=== PATIENT | male | born 1970 | race Hispanic/Latino ===

== ENCOUNTER 2017-01-28 22:04 | Observation (INO) | payer OTHER ==
[2017-01-28 22:05] VITALS: BMI 24.7
[2017-01-28] MEDS ORDERED: Sodium Chloride 0.9% 1,000 ML IV STA (22:31)
--- NOTE | 2017-01-28 22:36 | ED PDOC ---
HPI: Abdomen Time Seen by Provider: 01/28/17 22:14 Chief Complaint (Nursing): Abnormal Skin Integrity Chief Complaint (Provider): abd pain History Per: Patient History/Exam Limitations: no limitations Onset/Duration Of Symptoms: Days (2) Current Symptoms Are (Timing): Still Present Location Of Pain/Discomfort: RUQ Quality Of Discomfort: Sharp, "Pain" Associated Symptoms: denies: Fever, Chills, Nausea, Vomiting Additional History Per: Patient Additional Complaint(s): 47 y/o male brought in by EMS for eval of right upper abdominal pain x 2 days. Denies fever, nausea/vomiting, chest pain, shortness of breath, palpitations, changes in bowel movements, dysuria, hematuria. Past Medical History Reviewed: Historical Data, Nursing Documentation, Vital Signs Vital Signs: Last Vital Signs Temp 98.9 F 01/28/17 22:09 Pulse 106 H 01/28/17 22:09 Resp 20 01/28/17 22:09 BP 125/66 01/28/17 22:09 Pulse Ox 98 01/29/17 05:13 - Medical History PMH: No Chronic Diseases - Surgical History Surgical History: No Surg Hx - Family History Family History: States: Unknown Family Hx - Immunization History Hx Tetanus Toxoid Vaccination: No Hx Influenza Vaccination: No Hx Pneumococcal Vaccination: No - Home Medications Home Medications: Ambulatory Orders Medication Instructions Recorded Amoxicillin/Clavulanate [Augmentin 1 tab PO BID #14 tab 04/29/16 875 MG-125 MG] chlordiazePOXIDE [Chlordiazepoxide 10 mg PO Q8H #9 cap 04/29/16 HCl] Naproxen [Naprosyn] 500 mg PO Q12 PRN #20 tablet 01/29/17 - Allergies Allergies/Adverse Reactions: Allergies Allergy/AdvReac Type Severity Reaction Status Date / Time No Known Allergies Allergy Verified 05/04/16 02:23 Review of Systems ROS Statement: Except As Marked, All Systems Reviewed And Found Negative Gastrointestinal: Positive for: Abdominal Pain Physical Exam - Reviewed Nursing Documentation Reviewed: Yes Vital Signs Reviewed: Yes - Physical Exam Appears: Positive for: Well, Non-toxic, No Acute Distress Head Exam: Positive for: ATRAUMATIC, NORMAL INSPECTION, NORMOCEPHALIC Skin: Positive for: Rash (urticarial rash noted vertically to bilateral flank; no vesicles, drainage noted) Eye Exam: Positive for: Normal appearance ENT: Positive for: Normal ENT Inspection Cardiovascular/Chest: Positive for: Regular Rate, Rhythm Respiratory: Positive for: Normal Breath Sounds Gastrointestinal/Abdominal: Positive for: Bowel Sounds, Soft, Tenderness (ruq) Back: Positive for: Normal Inspection Extremity: Positive for: Normal ROM Neurologic/Psych: Positive for: Alert, Oriented, Other (+AOB) - Laboratory Results Result Diagrams: 01/28/17 22:40 01/28/17 22:40 - ECG O2 Sat by Pulse Oximetry: 98 - Progress ED Course And Treament: labs, abdomen u/s EXAM: US Abdomen Limited, Right Upper Quadrant CLINICAL HISTORY: 47 years old, male; Pain; Abdominal pain; Epigastric; Additional info: Ruq pain TECHNIQUE: Real-time ultrasound of the right upper quadrant with image documentation. COMPARISON: No relevant prior studies available. FINDINGS: Limitations: Patient compliance as per technologist. Liver: Heterogeneous, nonspecific. No discrete mass. No intrahepatic ductal dilatation. Gallbladder: Gallstone. No wall thickening. No pericholecystic fluid. Positive Yao's sign. Common bile duct: No dilatation. No stones. Pancreas: Obscured by overlying bowel gas. Right kidney: Normal echogenicity. Small cyst. No hydronephrosis. IMPRESSION: 1. Cholelithiasis with positive Yao's sign. Clinical correlation is needed. 2. Incidental/non-acute findings are described above ED OBSERVATION Discharge: Yes Date of observation admission: 01/28/17 Time of observation admission: 23:49 - Observation admission statement Patient is being placed in observation because:: abdominal pain, acute alcohol intoxication - Goals of Observation Goals of observation are:: observe for clinical sobriety, re-evaluate pain - Progress Note Progress Note: 01/28/17 23:49 Patient sleeping 01/29/17 1:30 Patient sleeping 3:00 Patient sleeping 4:30 Patient sleeping 01/29/17 05:14 Patient awake, alert, oriented x 3. Ambulating steady gait. States pain has improved. Patient educated on findings, discharged with rx Naproxen. Advised follow up [facility]. Return to ED for worsening/concerning symptoms. Disposition - Clinical Impression Clinical Impression: Cholelithiasis, Alcohol abuse - Patient ED Disposition Is Patient to be Admitted: No Counseled Patient/Family Regarding: Studies Performed, Diagnosis, Need For Followup, Rx Given - Disposition Disposition: Routine/Home Disposition Time: 05:13 Condition: STABLE
[2017-01-28 22:54] LABS: BASO % 0.9 % (0.0-2.0); EOS # 0.3 K/uL (0.0-0.7); EOS % 6.5 % (0.0-4.0); HEMOGLOBIN 14.2 g/dL (12.0-18.0); LYMPH # 1.4 K/uL (1.0-4.3); LYMPH % 27.4 % (20.0-40.0); MEAN CELL VOLUME 95.8 fl (80.0-94.0); MEAN CORPUSCULAR HEMOGLOBIN 31.9 pg (27.0-31.0); MEAN CORPUSCULAR HGB CONC 33.3 g/dL (33.0-37.0); MEAN PLATELET VOLUME 8.1 fl (7.2-11.7); MONO # 0.7 K/uL (0.0-0.8); MONO % 13.2 % (0.0-10.0); NEUT # 2.7 K/uL (1.8-7.0); NRBC % 0.1 % (0.0-0.0); RBC 4.46 Mil/uL (4.40-5.90); RED CELL DISTRIBUTION WIDTH 16.7 % (11.5-14.5); WHITE BLOOD COUNT 5.1 K/uL (4.8-10.8)
[2017-01-28 23:01] LABS: ALB/GLOB RATIO 1.3 (1.0-2.1); ALBUMIN 4.4 g/dL (3.5-5.0); ALT/SGPT 107 U/L (21-72); AST/SGOT 128 U/L (17-59); BLOOD UREA NITROGEN 11 mg/dl (9-20); CALCIUM 8.6 mg/dL (8.4-10.2); GFR AFRICAN-AMERICAN > 60; GFR NON-AFRICAN AMERICAN > 60; LIPASE 199 U/L (23-300)
[2017-01-29 05:35] VITALS: BP 141/94; PULSE 88; RESP 15; TEMP 98; O2SAT 99
--- NOTE | 2017-01-29 07:50 | US ---
HISTORY: ruq pain COMPARISON: None. TECHNIQUE: Sonographic evaluation of the right upper quadrant of the abdomen. FINDINGS: LIVER: Measures 15.2 cm in length. Hepatopedal blood flow. Fatty infiltration manifest ultrasonographically as increased echogenicity of the liver parenchyma. No mass. No intrahepatic bile duct dilatation. GALLBLADDER: Cholelithiasis. Negative study for gallbladder wall thickening, pericholecystic fluid, sonographic Yao's sign. COMMON BILE DUCT: Measures 4.4 mm. No stones. No dilatation. PANCREAS: Unremarkable as visualized. No mass. No ductal dilatation. RIGHT KIDNEY: Measures 5.3 x 11.6 cm in length. Normal echogenicity. No calculus, mass, or hydronephrosis.Incidental finding(s): Simple cyst 1 cm lower pole AORTA: No aneurysmal dilatation. IVC: Unremarkable. OTHER FINDINGS: None . IMPRESSION: Cholelithiasis. No sonographic evidence of acute cholecystitis.
== END 2017-01-29 05:16 | disposition home or self-care (01) ==
LOC: H.ER 22:04 → H.EROBSV 23:48
PROVIDERS: ADMIT Emergency Medicine; ATTEND Emergency Medicine
DX: K80.20 Calculus of gallbladder without cholecystitis without obstruction (principal); F10.129 Alcohol abuse with intoxication, unspecified; Y90.8 Blood alcohol level of 240 mg/100 ml or more

== ENCOUNTER 2017-03-07 10:19 | Observation (INO) | payer OTHER ==
[2017-03-07 10:22] VITALS: BMI 24.1
[2017-03-07 10:23] VITALS: BP 117/78; PULSE 78; RESP 17; TEMP 97.8; O2SAT 96
[2017-03-07 11:07] LABS: BASO # 0.1 K/uL (0.0-0.2); BASO % 1.4 % (0.0-2.0); EOS # 0.9 K/uL (0.0-0.7); EOS % 12.6 % (0.0-4.0); HEMATOCRIT 41.9 % (35.0-51.0); LYMPH # 2.2 K/uL (1.0-4.3); LYMPH % 32.1 % (20.0-40.0); MEAN CELL VOLUME 98.9 fl (80.0-94.0); MEAN CORPUSCULAR HEMOGLOBIN 32.4 pg (27.0-31.0); MEAN CORPUSCULAR HGB CONC 32.8 g/dL (33.0-37.0); MONO # 0.6 K/uL (0.0-0.8); MONO % 9.5 % (0.0-10.0); NEUT % 44.4 % (50.0-75.0); NRBC % 0.1 % (0.0-0.0); RED CELL DISTRIBUTION WIDTH 13.5 % (11.5-14.5); WHITE BLOOD COUNT 6.8 K/uL (4.8-10.8)
--- NOTE | 2017-03-07 11:07 | RAD ---
HISTORY: CP COMPARISON: None available. TECHNIQUE: Chest, one view. FINDINGS: Examination limited by habitus and hypoinflation. LUNGS: No focal consolidation. Small nodular densities are noted in the level the left hilum, possibly prominent vessels on end however pulmonary nodules are not excluded. Please note that chest x-ray has limited sensitivity for the detection of pulmonary masses. PLEURA: No significant pleural effusion identified. No definite pneumothorax . CARDIOVASCULAR: Heart size appears within normal limits. Prominence of the mediastinum may be exaggerated by tortuous vasculature and patient obliquity however alternatives including adenopathy cannot be excluded. OSSEOUS STRUCTURES: No acute osseous abnormality identified. VISUALIZED UPPER ABDOMEN: Unremarkable. OTHER FINDINGS: None. IMPRESSION: Prominence of the mediastinum may be exaggerated by tortuous vasculature and patient obliquity however alternatives including adenopathy cannot be excluded. Correlate clinically. Small nodular densities are noted in the level the left hilum, possibly prominent vessels on end however pulmonary nodules are not excluded. CT of the chest with IV contrast may be considered in the proper clinical setting.
--- NOTE | 2017-03-07 11:09 | ED PDOC ---
HPI: Psych/Substance Abuse Time Seen by Provider: 03/07/17 10:25 Chief Complaint (Nursing): Alcohol Ingestion Chief Complaint (Provider): intoxicated and chest pain ED Caveat: Intoxicated History Per: Patient History/Exam Limitations: no limitations Onset/Duration Of Symptoms: Gradual Current Symptoms Are (Timing): Intermittent Episodes Suicide/Self Injury Attempted (Context): None Modifying Factor(s): Alcohol Severity: Moderate Additional Complaint(s): 47yo male arrives appearing intoxicated admits to significant alcohol intake, also notes vague chest pain unable to describe in detail. Denies trauma or falls. Has discharge paperwork from [facility] from 01/31 for kidney stones. Past Medical History Reviewed: Historical Data, Nursing Documentation, Vital Signs, Unable To Obtain (intox) Vital Signs: Last Vital Signs Temp 97.8 F 03/07/17 10:22 Pulse 78 03/07/17 10:22 Resp 17 03/07/17 10:22 BP 117/78 03/07/17 10:22 Pulse Ox 96 03/07/17 10:22 - Family History Family History: States: Unknown Family Hx - Immunization History Hx Tetanus Toxoid Vaccination: No Hx Influenza Vaccination: No Hx Pneumococcal Vaccination: No - Home Medications Home Medications: Ambulatory Orders Medication Instructions Recorded No Known Home Med 01/31/17 - Allergies Allergies/Adverse Reactions: Allergies Allergy/AdvReac Type Severity Reaction Status Date / Time No Known Allergies Allergy Verified 03/07/17 10:32 Review of Systems Review Of Systems: ROS cannot be obtained secondary to pt's inabilty to answer questions. Physical Exam - Reviewed Nursing Documentation Reviewed: Yes Vital Signs Reviewed: Yes - Physical Exam Appears: Positive for: Non-toxic (+AOB w slurred speech) Head Exam: Positive for: ATRAUMATIC, NORMAL INSPECTION, NORMOCEPHALIC Skin: Positive for: Normal Color, Warm, DRY Eye Exam: Positive for: EOMI, Normal appearance, PERRL ENT: Positive for: Normal ENT Inspection, Other (halitosis) Neck: Positive for: Normal, Painless ROM Cardiovascular/Chest: Positive for: Regular Rate, Rhythm Respiratory: Positive for: CNT, Normal Breath Sounds Gastrointestinal/Abdominal: Positive for: Normal Exam, Bowel Sounds, Soft Back: Positive for: Normal Inspection Extremity: Positive for: Normal ROM. Negative for: Deformity, Swelling Neurologic/Psych: Positive for: Alert, Other (slurred speech intoxicated appearing but strength symmetric b/l) - Laboratory Results Result Diagrams: 03/07/17 10:50 03/07/17 10:50 - ECG O2 Sat by Pulse Oximetry: 96 Medical Decision Making Medical Decision Making: workup initiated for intoxication with c/o vague chest pain and limited history due to intoxication 1130 labs reviewed, etoh 410, trop neg, chem consistent w etoh abuse. 1500 more awake, vitals stable 1730: awake, ambulated to BR. Tolerated PO. Repeat trop pending 1805: repeat trop negative, remains awake with stable gait. ED OBSERVATION Date of observation admission: 03/07/17 Time of observation admission: 12:00 - Observation admission statement Patient is being placed in observation because:: intoxication and c/o chest pain - Goals of Observation Goals of observation are:: sobriety, r/o ACS Disposition - Clinical Impression Clinical Impression: Alcohol abuse with alcohol-induced disorder, Chest pain - Patient ED Disposition Is Patient to be Admitted: No Counseled Patient/Family Regarding: Studies Performed, Diagnosis, Need For Followup - Disposition Disposition Time: 12:00 Condition: STABLE
[2017-03-07 11:13] LABS: ALB/GLOB RATIO 1.3 (1.0-2.1); ALKALINE PHOSPHATASE 100 U/L (38-126); ALT/SGPT 125 U/L (21-72); AST/SGOT 172 U/L (17-59); BILIRUBIN,TOTAL 0.6 mg/dl (0.2-1.3); BLOOD UREA NITROGEN 8 mg/dl (9-20); CARBON DIOXIDE 32 mmol/L (22-30); CHLORIDE 108 mmol/L (98-107); GFR AFRICAN-AMERICAN > 60; GLUCOSE,RANDOM 100 mg/dL (75-110); POTASSIUM 4.9 MMOL/L (3.6-5.0); SODIUM 150 mmol/l (132-148); TOTAL PROTEIN 7.6 G/DL (6.3-8.2)
[2017-03-07 11:26] LABS: ALCOHOL SERUM 410 mg/dl (0-10)
== END 2017-03-07 18:21 | disposition home or self-care (01) ==
LOC: H.ER 10:19 → H.EROBSV 12:03
PROVIDERS: ADMIT Emergency Medicine; ATTEND Emergency Medicine
DX: R47.81 Slurred speech (principal); F10.10 Alcohol abuse, uncomplicated; Z87.442 Personal history of urinary calculi; Y90.8 Blood alcohol level of 240 mg/100 ml or more
CPT/HCPCS: 71010; 80053; 80320; 82948; 84484; 85025; 99282; G0378

== ENCOUNTER 2017-03-14 04:47 | Emergency (ER) | payer OTHER ==
[2017-03-14 05:04] VITALS: RESP 18; TEMP 97.8
--- NOTE | 2017-03-14 05:10 | ED PDOC ---
HPI: Psych/Substance Abuse Time Seen by Provider: 03/14/17 04:54 Chief Complaint (Nursing): Alcohol Ingestion Chief Complaint (Provider): ETOH History Per: Patient Additional Complaint(s): Pt is a 47 yo male, no PMH, presents to ED with coplaints of right shoulder pain. Pt approached a special police with diffuse, vague complaints of pain. (+ ) AOB, admits to drinking an unknown amount of ETOH, denies drug use. No signs of truama or injury, Pt denies falling Past Medical History Reviewed: Nursing Documentation, Vital Signs Vital Signs: Last Vital Signs Temp 97.8 F 03/14/17 05:00 Pulse 89 03/14/17 05:00 Resp 18 03/14/17 05:00 BP 115/77 03/14/17 05:00 Pulse Ox 97 03/14/17 05:00 - Medical History PMH: No Chronic Diseases - Surgical History Surgical History: No Surg Hx - Family History Family History: States: Unknown Family Hx - Living Arrangements Living Arrangements: With Family - Social History Current smoker - smoking cessation education provided: No Alcohol: Social Drugs: Denies - Immunization History Hx Tetanus Toxoid Vaccination: No Hx Influenza Vaccination: No Hx Pneumococcal Vaccination: No - Home Medications Home Medications: Ambulatory Orders Medication Instructions Recorded No Known Home Med 01/31/17 - Allergies Allergies/Adverse Reactions: Allergies Allergy/AdvReac Type Severity Reaction Status Date / Time No Known Allergies Allergy Verified 03/14/17 05:00 Review of Systems ROS Statement: Except As Marked, All Systems Reviewed And Found Negative Musculoskeletal: Positive for: Shoulder Pain Physical Exam - Reviewed Nursing Documentation Reviewed: Yes Vital Signs Reviewed: Yes - Physical Exam Appears: Positive for: Well, Non-toxic, No Acute Distress Head Exam: Positive for: ATRAUMATIC, NORMAL INSPECTION, NORMOCEPHALIC Skin: Positive for: Normal Color, Warm, DRY Eye Exam: Positive for: EOMI, Normal appearance, PERRL ENT: Positive for: Normal ENT Inspection Neck: Positive for: Normal, Painless ROM Cardiovascular/Chest: Positive for: Regular Rate, Rhythm Respiratory: Positive for: CNT, Normal Breath Sounds Gastrointestinal/Abdominal: Positive for: Normal Exam, Bowel Sounds, Soft Back: Positive for: Normal Inspection Extremity: Positive for: Normal ROM, Tenderness (right anterior shoulder). Negative for: Deformity, Swelling Neurologic/Psych: Positive for: Alert, Oriented - ECG O2 Sat by Pulse Oximetry: 97 Medical Decision Making Medical Decision Making: Diagnostics ordered Shoulder XR: NAD, as read by [facility] Case endorsed to ED MD, Dr. Baum, pending diagnostic review and re-eval Disposition - Clinical Impression Clinical Impression: Alcohol abuse - Patient ED Disposition Is Patient to be Admitted: Transfer of Care - Disposition Disposition: Transfer of Care Disposition Time: 05:58 Condition: STABLE Forms: [facility] (Occitan) - POA Present On Arrival: None
--- NOTE | 2017-03-14 06:08 | ED PDOC ---
- Laboratory Results Result Diagrams: 03/14/17 05:24 03/14/17 05:24 - ECG O2 Sat by Pulse Oximetry: 97 Medical Decision Making Medical Decision Makin -Patient endorsed to me by Jeannine GOODRICH. -Pending labs and sobriety Disposition - Clinical Impression Clinical Impression: Alcohol abuse - POA Present On Arrival: None - Disposition Disposition: Transfer of Care Disposition Time: 06:00 Condition: STABLE Forms: [facility] (Nigerian) Patient Signed Over To: Brian Friedman III
[2017-03-14 06:22] LABS: BASO # 0.1 K/uL (0.0-0.2); BASO % 0.8 % (0.0-2.0); EOS # 0.7 K/uL (0.0-0.7); EOS % 11.8 % (0.0-4.0); HEMATOCRIT 43.8 % (35.0-51.0); LYMPH # 2.9 K/uL (1.0-4.3); LYMPH % 45.6 % (20.0-40.0); MEAN CELL VOLUME 97.9 fl (80.0-94.0); MEAN CORPUSCULAR HEMOGLOBIN 32.6 pg (27.0-31.0); MEAN CORPUSCULAR HGB CONC 33.3 g/dL (33.0-37.0); MEAN PLATELET VOLUME 8.6 fl (7.2-11.7); MONO # 0.6 K/uL (0.0-0.8); MONO % 8.7 % (0.0-10.0); NEUT # 2.1 K/uL (1.8-7.0); NEUT % 33.1 % (50.0-75.0); NRBC % 0.1 % (0.0-0.0); RED CELL DISTRIBUTION WIDTH 13.3 % (11.5-14.5); WHITE BLOOD COUNT 6.3 K/uL (4.8-10.8)
[2017-03-14 06:30] LABS: ALB/GLOB RATIO 1.2 (1.0-2.1); ALKALINE PHOSPHATASE 133 U/L (38-126); ALT/SGPT 120 U/L (21-72); AST/SGOT 183 U/L (17-59); BILIRUBIN,TOTAL 0.8 mg/dl (0.2-1.3); BLOOD UREA NITROGEN 9 mg/dl (9-20); CALCIUM 8.7 mg/dL (8.4-10.2); CARBON DIOXIDE 28 mmol/L (22-30); CHLORIDE 106 mmol/L (98-107); GFR AFRICAN-AMERICAN > 60; GLUCOSE,RANDOM 102 mg/dL (75-110); POTASSIUM 3.9 MMOL/L (3.6-5.0); SODIUM 150 mmol/l (132-148); TOTAL PROTEIN 7.8 G/DL (6.3-8.2)
[2017-03-14 06:40] LABS: ALCOHOL SERUM 414 mg/dl (0-10)
--- NOTE | 2017-03-14 09:21 | RAD ---
PROCEDURE: Radiographs of the Right Shoulder HISTORY: pain COMPARISON: Comparison made with prior radiographs right shoulder 05/21/2016. FINDINGS: BONES: Normal. No fracture. JOINTS: Mild degenerative osteoarthritis right acromioclavicular joint with spurring along the superior margin of the joint spaces; rule out impingement syndrome. . . Minimal degenerative changes right glenohumeral joint. SOFT TISSUES: Questionable vessel on end artifact or possibly small granuloma right lateral upper lung OTHER FINDINGS: None. IMPRESSION: No acute fracture nor dislocation. Mild DJD as described Questionable vessel on end artifact or possibly small granuloma right lateral upper lung zone
[2017-03-14 11:37] VITALS: BP 111/70; PULSE 92; O2SAT 99
== END 2017-03-14 11:26 | disposition home or self-care (01) ==
LOC: H.ER 04:47
DX: F10.129 Alcohol abuse with intoxication, unspecified (principal); M25.511 Pain in right shoulder
CPT/HCPCS: 73030; 80053; 85025; 99283; G0480

== ENCOUNTER 2017-03-20 20:44 | Observation (INO) | payer OTHER, SELFPAY ==
[2017-03-20 20:44] VITALS: BMI 24.1
[2017-03-20 20:49] VITALS: BP 148/73; PULSE 82; RESP 16; TEMP 98; O2SAT 98
--- NOTE | 2017-03-20 21:23 | ED PDOC ---
HPI: Psych/Substance Abuse Time Seen by Provider: 03/20/17 21:15 Chief Complaint (Nursing): Alcohol Ingestion Chief Complaint (Provider): etoh History Per: EMS History/Exam Limitations: intoxication Additional History Per: Patient, EMS Additional Complaint(s): 47 y/o male brought in by EMS for acute alcohol intoxication. Patient admits to drinking. Denies acute medical or psychiatric complaints. Past Medical History Reviewed: Historical Data, Nursing Documentation, Vital Signs Vital Signs: Last Vital Signs Temp 98.0 F 03/20/17 20:48 Pulse 82 03/20/17 20:48 Resp 16 03/20/17 20:48 BP 148/73 03/20/17 20:48 Pulse Ox 98 03/20/17 20:48 - Medical History PMH: No Chronic Diseases - Surgical History Surgical History: No Surg Hx - Family History Family History: States: Unknown Family Hx - Immunization History Hx Tetanus Toxoid Vaccination: No Hx Influenza Vaccination: No Hx Pneumococcal Vaccination: No - Home Medications Home Medications: Ambulatory Orders Medication Instructions Recorded No Known Home Med 01/31/17 - Allergies Allergies/Adverse Reactions: Allergies Allergy/AdvReac Type Severity Reaction Status Date / Time No Known Allergies Allergy Verified 03/14/17 05:00 Review of Systems ROS Statement: Except As Marked, All Systems Reviewed And Found Negative Physical Exam - Reviewed Nursing Documentation Reviewed: Yes Vital Signs Reviewed: Yes - Physical Exam Appears: Positive for: Well, Non-toxic, No Acute Distress Head Exam: Positive for: ATRAUMATIC, NORMAL INSPECTION, NORMOCEPHALIC Skin: Positive for: Normal Color Eye Exam: Positive for: Normal appearance ENT: Positive for: Normal ENT Inspection Cardiovascular/Chest: Positive for: Regular Rate, Rhythm Respiratory: Positive for: Normal Breath Sounds Gastrointestinal/Abdominal: Positive for: Normal Exam Extremity: Positive for: Normal ROM Neurologic/Psych: Positive for: Alert, Oriented - ECG O2 Sat by Pulse Oximetry: 98 ED OBSERVATION Discharge: Yes Date of observation admission: 03/20/17 Time of observation admission: 22:38 - Observation admission statement Patient is being placed in observation because:: acute alcohol intoxication - Goals of Observation Goals of observation are:: observe for clinical sobriety - Progress Note Progress Note: 03/20/17 22:38 patient awake, resting comfortably 03/21/17 00:00 Patient sleeping; no distress 1:30 Patient sleeping; no distress 3:00 Patient sleeping; no distress 4:30 Patient sleeping; no distress 5:10 Patient awake, alert, oriented x3. Ambulating steady gait. Stable for discharge Disposition - Clinical Impression Clinical Impression: Alcohol abuse - Patient ED Disposition Is Patient to be Admitted: No Counseled Patient/Family Regarding: Studies Performed, Diagnosis, Need For Followup - Disposition Disposition: Routine/Home Disposition Time: 05:10 Condition: STABLE
== END 2017-03-21 05:45 | disposition home or self-care (01) ==
LOC: H.ER 20:44 → H.EROBSV 22:37
PROVIDERS: ADMIT Emergency Medicine; ATTEND Emergency Medicine
DX: F10.129 Alcohol abuse with intoxication, unspecified (principal); Y90.8 Blood alcohol level of 240 mg/100 ml or more
CPT/HCPCS: 80320; 82948; 99282; G0378

== ENCOUNTER 2017-06-05 17:14 | Emergency (ER) | payer SELFPAY ==
[2017-06-05 17:14] VITALS: BMI 24.1
--- NOTE | 2017-06-05 17:47 | ED PDOC ---
HPI: Psych/Substance Abuse Time Seen by Provider: 06/05/17 17:27 Chief Complaint (Nursing): Alcohol Ingestion Chief Complaint (Provider): intoxication Additional Complaint(s): 47yo M in ED bought by EMS for intoxication found on sidewalk. pt with slurred speech and unstable gait. Past Medical History Reviewed: Historical Data, Nursing Documentation, Vital Signs, Unable To Obtain Vital Signs: Last Vital Signs Temp 97.9 F 06/05/17 17:17 Pulse 84 06/05/17 17:17 Resp 19 06/05/17 17:17 BP 133/96 H 06/05/17 17:17 Pulse Ox 97 06/05/17 17:17 - Family History Family History: States: Unknown Family Hx - Immunization History Hx Tetanus Toxoid Vaccination: No Hx Influenza Vaccination: No Hx Pneumococcal Vaccination: No - Home Medications Home Medications: Ambulatory Orders Medication Instructions Recorded No Known Home Med 01/31/17 - Allergies Allergies/Adverse Reactions: Allergies Allergy/AdvReac Type Severity Reaction Status Date / Time No Known Allergies Allergy Verified 06/05/17 17:17 Review of Systems Review Of Systems: ROS cannot be obtained secondary to pt's inabilty to answer questions. Physical Exam - Reviewed Nursing Documentation Reviewed: Yes Vital Signs Reviewed: Yes - Physical Exam Appears: Positive for: Non-toxic, No Acute Distress. Negative for: Well ( intoxicated ) Head Exam: Positive for: ATRAUMATIC, NORMAL INSPECTION, NORMOCEPHALIC Skin: Positive for: Normal Color, Warm, DRY Eye Exam: Positive for: Normal appearance, EOMI. Negative for: PERRL (dilated, etoh on breath) Cardiovascular/Chest: Positive for: Regular Rate, Rhythm Respiratory: Positive for: CNT, Normal Breath Sounds Extremity: Positive for: Other (right shoudlder: pain is illicited when ranging shoulder-unable to pronate/spunate, swelling not to ant. shoulder tenderness on palpations. clavicle is nontender. ) Neurologic/Psych: Positive for: Alert, Oriented - ECG O2 Sat by Pulse Oximetry: 97 - Radiology X-Ray: Interpreted by Al X-Ray Interpretation: No Acute Disease - Progress ED Course And Treament: Orders Category Date Time Status ALCOHOL SERUM Stat Chem 06/05/17 17:38 Ordered SHOULDER RIGHT [RAD] Stat Radiology 06/05/17 17:35 Ordered Disposition - Disposition Forms: [facility] (Lao)
[2017-06-05 22:16] VITALS: TEMP 98.2
[2017-06-06 00:04] VITALS: RESP 18
--- NOTE | 2017-06-06 03:56 | ED PDOC ---
- ECG O2 Sat by Pulse Oximetry: 99 - Progress ED Course And Treament: Case endorsed to continuity writer from Susanne MADRID pending clinical sobriety 21:30 Patient sleeping; no distress 23:00 Patient sleeping; no distress 06/06/17 00:30 Patient sleeping; no distress 2:00 Patient sleeping; no distress 3:30 Patient awake, alert, oriented x3. Ambulating steady gait. Stable for discharge Disposition - Clinical Impression Clinical Impression: Alcohol abuse - POA Present On Arrival: None - Disposition Disposition: Routine/Home Disposition Time: 03:30 Condition: STABLE Instructions: Abuse of Alcohol (ED) Print Language: ESTONIAN
[2017-06-06 04:04] VITALS: BP 128/76; PULSE 98
[2017-06-06 04:17] VITALS: O2SAT 99
--- NOTE | 2017-06-06 10:29 | RAD ---
PROCEDURE: Radiographs of the Right Shoulder HISTORY: injury unable to pronate/supinate COMPARISON: No prior. FINDINGS: BONES: Normal. No fracture. JOINTS: There are moderate osteoarthritic changes more prominent at the AC joint associated with narrowing of the subacromial space. SOFT TISSUES: Normal. OTHER FINDINGS: None. IMPRESSION: No evidence of acute fracture or dislocation. Moderate osteoarthritic changes at the AC joint and narrowing of the subacromial space.
== END 2017-06-06 04:05 | disposition home or self-care (01) ==
LOC: H.ER 17:14
DX: F10.10 Alcohol abuse, uncomplicated (principal); M25.511 Pain in right shoulder
CPT/HCPCS: 73030; 99283; G0480

== ENCOUNTER 2017-06-19 16:39 | Emergency (ER) | payer SELFPAY ==
[2017-06-19 16:39] VITALS: BMI 24.1
[2017-06-19 16:45] VITALS: RESP 16
--- NOTE | 2017-06-19 17:00 | ED PDOC ---
HPI: General Adult Time Seen by Provider: 06/19/17 16:58 Chief Complaint (Nursing): Rib Injury Chief Complaint (Provider): shoulder injury History Per: Patient (47 y/o male h/o Alcohol abuse here after fall yesterday on shoulder. Believes he has struck head but unsure. Admits to etoh today.) Past Medical History Reviewed: Historical Data, Nursing Documentation, Vital Signs Vital Signs: Last Vital Signs Temp 98.0 F 06/19/17 16:43 Pulse 97 H 06/19/17 16:43 Resp 16 06/19/17 16:43 BP 129/77 06/19/17 16:43 Pulse Ox 99 06/19/17 16:59 - Family History Family History: States: Unknown Family Hx - Immunization History Hx Tetanus Toxoid Vaccination: No Hx Influenza Vaccination: No Hx Pneumococcal Vaccination: No - Home Medications Home Medications: Ambulatory Orders Medication Instructions Recorded No Known Home Med 01/31/17 - Allergies Allergies/Adverse Reactions: Allergies Allergy/AdvReac Type Severity Reaction Status Date / Time No Known Allergies Allergy Verified 06/05/17 17:17 Review of Systems ROS Statement: Except As Marked, All Systems Reviewed And Found Negative Physical Exam - Reviewed Nursing Documentation Reviewed: Yes Vital Signs Reviewed: Yes - Physical Exam Appears: Positive for: Well, Non-toxic, No Acute Distress Head Exam: Positive for: ATRAUMATIC, NORMAL INSPECTION, NORMOCEPHALIC Skin: Positive for: Normal Color, Warm, DRY Eye Exam: Positive for: EOMI, Normal appearance, PERRL ENT: Positive for: Normal ENT Inspection Neck: Positive for: Normal, Painless ROM Cardiovascular/Chest: Positive for: Regular Rate, Rhythm Respiratory: Positive for: CNT, Normal Breath Sounds Gastrointestinal/Abdominal: Positive for: Normal Exam, Bowel Sounds, Soft Back: Positive for: Normal Inspection Extremity: Positive for: Normal ROM Neurologic/Psych: Positive for: Alert, Oriented - ECG O2 Sat by Pulse Oximetry: 99 - Progress ED Course And Treament: CT of head: IMPRESSION: No acute intracranial pathology identified. Mucosal thickening of the ethmoid air cells and bilateral maxillary sinuses ; correlate clinically for chronic sinusitis. xry of right shoulder: IMPRESSION: Degenerative joint disease is identified as discussed above. No acute fracture or dislocation identified at this time. Disposition - Clinical Impression Clinical Impression: Shoulder injury, Head injury - Patient ED Disposition Is Patient to be Admitted: No - Disposition Referrals: [facility] [Outside] Disposition: Routine/Home Disposition Time: 18:49 Condition: FAIR Instructions: Contusion in Adults (ED), Shoulder Sprain (ED), Head Injury (ED) Forms: [facility] (Maori) Print Language: CHINESE
--- NOTE | 2017-06-19 17:37 | CT ---
PROCEDURE: CT HEAD WITHOUT CONTRAST. HISTORY: head injury COMPARISON: Noncontrast head CT performed 04/29/16 TECHNIQUE: Axial computed tomography images were obtained through the head/brain without intravenous contrast. Radiation dose: Total exam DLP = 1267.14 mGy-cm. This CT exam was performed using one or more of the following dose reduction techniques: Automated exposure control, adjustment of the mA and/or kV according to patient size, and/or use of iterative reconstruction technique. FINDINGS: HEMORRHAGE: No intracranial hemorrhage. BRAIN: Diffuse atrophy with prominence of the ventricles and sulci noted. No mass effect or edema. The steel-white matter differentiation appears intact. Please note that MRI with diffusion imaging is more sensitive in the detection of acute ischemic event. VENTRICLES: No hydrocephalus. CALVARIUM: Unremarkable. PARANASAL SINUSES: Mucosal thickening of the ethmoid air cells and bilateral maxillary sinuses. MASTOID AIR CELLS: Unremarkable as visualized. No inflammatory changes. OTHER FINDINGS: None. IMPRESSION: No acute intracranial pathology identified. Mucosal thickening of the ethmoid air cells and bilateral maxillary sinuses ; correlate clinically for chronic sinusitis.
--- NOTE | 2017-06-19 18:10 | RAD ---
PROCEDURE: Radiographs of the Right Shoulder HISTORY: right shoulder injury COMPARISON: No prior. FINDINGS: BONES: No acute fracture or destructive bony lesion identified. JOINTS: Advanced degenerative changes seen at the acromioclavicular joint with superior swells inferior osteophytes identified. Lesser similar change are present the glenohumeral joint. SOFT TISSUES: Normal. OTHER FINDINGS: None. IMPRESSION: Degenerative joint disease is identified as discussed above. No acute fracture or dislocation identified at this time.
[2017-06-19 20:06] VITALS: BP 117/75; PULSE 100; TEMP 98.7; O2SAT 95
--- NOTE | 2017-06-20 01:00 | ED PDOC ---
- ECG O2 Sat by Pulse Oximetry: 95 Pulse Ox Interpretation: Normal Medical Decision Making Medical Decision Making: Pt monitored in ER pending sobriety. 0000 - Clear speech and steady gait. Disposition - Clinical Impression Clinical Impression: Shoulder injury, Head injury - POA Present On Arrival: None - Disposition Referrals: [facility] [Outside] Disposition: Routine/Home Disposition Time: 01:00 Condition: FAIR Instructions: Head Injury (ED), Contusion in Adults (ED), Shoulder Sprain (ED) Forms: [employer] (Vietnamese) Print Language: ESTONIAN
== END 2017-06-20 01:00 | disposition home or self-care (01) ==
LOC: H.ER 16:39
DX: S09.90XA Unspecified injury of head, initial encounter (principal); S49.91XA Unspecified injury of right shoulder and upper arm, initial encounter; W19.XXXA Unspecified fall, initial encounter; Y92.89 Other specified places as the place of occurrence of the external cause; F10.129 Alcohol abuse with intoxication, unspecified; J32.9 Chronic sinusitis, unspecified

== ENCOUNTER 2018-10-13 00:32 | Emergency (ER) | payer SELFPAY ==
[2018-10-13 00:33] VITALS: BMI 24.1
--- NOTE | 2018-10-13 01:52 | ED PDOC ---
HPI: Psych/Substance Abuse Time Seen by Provider: 10/13/18 00:45 Chief Complaint (Nursing): Alcohol Ingestion Chief Complaint (Provider): Alcohol Ingestion ED Caveat: Intoxicated History Per: EMS History/Exam Limitations: intoxication Additional Complaint(s): 48 years old male brought in by EMS after he was found in street intoxicated. History is limited due to patient's intoxicated state. no signs of trauma. PMD: None provided Past Medical History Reviewed: Historical Data, Nursing Documentation, Vital Signs Vital Signs: Last Vital Signs Temp 97.8 F 10/13/18 00:39 Pulse 80 10/13/18 00:39 Resp 18 10/13/18 00:39 BP 129/67 10/13/18 00:39 Pulse Ox 97 10/13/18 00:39 - Medical History PMH: No Chronic Diseases Other PMH: Unknown - Surgical History Surgical History: No Surg Hx Other surgeries: Unknwon - Family History Family History: States: Unknown Family Hx - Social History Current smoker - smoking cessation education provided: No Alcohol: > 2 Drinks/Day Drugs: Denies - Immunization History Hx Tetanus Toxoid Vaccination: No Hx Influenza Vaccination: No Hx Pneumococcal Vaccination: No - Home Medications Home Medications: Ambulatory Orders Medication Instructions Recorded No Known Home Med 01/31/17 - Allergies Allergies/Adverse Reactions: Allergies Allergy/AdvReac Type Severity Reaction Status Date / Time No Known Allergies Allergy Verified 06/05/17 17:17 Review of Systems Review Of Systems: ROS cannot be obtained secondary to pt's inabilty to answer questions. Physical Exam - Reviewed Nursing Documentation Reviewed: Yes Vital Signs Reviewed: Yes - Physical Exam Appears: Positive for: No Acute Distress (intoxicated) Head Exam: Positive for: ATRAUMATIC, NORMOCEPHALIC Skin: Positive for: Normal Color, Warm, Dry Eye Exam: Positive for: Normal appearance, EOMI, PERRL ENT: Positive for: Normal ENT Inspection Neck: Positive for: Normal, Painless ROM, Supple Cardiovascular/Chest: Positive for: Regular Rate, Rhythm. Negative for: Murmur Respiratory: Positive for: Normal Breath Sounds. Negative for: Respiratory Distress Gastrointestinal/Abdominal: Positive for: Normal Exam, Soft. Negative for: Tenderness Back: Positive for: Normal Inspection. Negative for: L CVA Tenderness, R CVA Tenderness Extremity: Positive for: Normal ROM. Negative for: Pedal Edema, Deformity Neurological/Psych: Positive for: Awake (at tines), Motor/Sensory Deficits, Other (somnolent, intoxicated). Negative for: typing checker II-XII - ECG O2 Sat by Pulse Oximetry: 97 (RA) Pulse Ox Interpretation: Normal Medical Decision Making Medical Decision Making: Time: 112 Initial plan: --Alcohol serum pending sobriety alcohol level eleavted 0300 pt sleeping in no distresse. no SI/HI noted. no trauma to head, he states 0700 pt awake and alert, stable gait, clinically sober ScribeAttestation: Documented byShaylee Flaherty, acting as a scribe for Andreia Martin MD. Provider ScribeAttestation: All medical record entries made by the Scribe were at my direction and personally dictated by me. I have reviewed the chart and agree that the record accurately reflects my personal performance of the history, physical exam, medical decision making, and the department course for this patient. I have also personally directed, reviewed, and agree with the discharge instructions and disposition. Disposition - Clinical Impression Clinical Impression: Alcohol poisoning - Patient ED Disposition Is Patient to be Admitted: No Counseled Patient/Family Regarding: Studies Performed, Diagnosis - Disposition Disposition: Routine/Home Disposition Time: 06:20 Condition: IMPROVED Forms: [employer] (Taiwanese)
[2018-10-13 06:15] VITALS: O2SAT 97
[2018-10-13 06:52] VITALS: BP 128/79; PULSE 85; RESP 17; TEMP 98.1
== END 2018-10-13 07:10 | disposition home or self-care (01) ==
LOC: H.ER 00:32
DX: T51.0X1A Toxic effect of ethanol, accidental (unintentional), initial encounter (principal)
CPT/HCPCS: 82948; 99284; G0480

== ENCOUNTER 2018-10-27 22:47 | Emergency (ER) | payer OTHER ==
[2018-10-27 22:47] VITALS: BMI 24.1
[2018-10-27 23:56] LABS: BASO % 0.8 % (0.0-2.0); EOS # 0.1 K/uL (0.0-0.7); HEMOGLOBIN 13.3 g/dL (12.0-18.0); LYMPH # 1.9 K/uL (1.0-4.3); LYMPH % 50.9 % (20.0-40.0); MEAN CELL VOLUME 93.2 fl (80.0-94.0); MEAN CORPUSCULAR HEMOGLOBIN 31.4 pg (27.0-31.0); MEAN CORPUSCULAR HGB CONC 33.7 g/dL (33.0-37.0); MEAN PLATELET VOLUME 8.2 fl (7.2-11.7); MONO # 0.3 K/uL (0.0-0.8); MONO % 9.3 % (0.0-10.0); NEUT # 1.3 K/uL (1.8-7.0); NRBC % 0.1 % (0.0-0.0); RBC 4.22 Mil/uL (4.40-5.90); RED CELL DISTRIBUTION WIDTH 14.7 % (11.5-14.5); WHITE BLOOD COUNT 3.7 K/uL (4.8-10.8)
[2018-10-28 00:09] LABS: BLOOD UREA NITROGEN 7 mg/dl (9-20); CALCIUM 8.4 mg/dL (8.4-10.2); GFR NON-AFRICAN AMERICAN > 60
[2018-10-28] MEDS ORDERED: Sodium Chloride 0.9% 1,000 ML IV STA ×2 (00:16→11:27)
--- NOTE | 2018-10-28 00:24 | ED PDOC ---
HPI: Psych/Substance Abuse Time Seen by Provider: 10/27/18 22:55 Chief Complaint (Nursing): Alcohol Ingestion Chief Complaint (Provider): Alcohol Ingestion ED Caveat: Acuity of Condition History Per: Patient History/Exam Limitations: intoxication Additional Complaint(s): 48 y/o male with unknown past medical history brought in by the police presents to the ED due to alcohol intoxication. Police brought patient in after being asked for assistance due to being intoxicated. Patient admits drinking 3 small bottles of vodka. On arrival patient states he has been having chest pain for the past 3 days. Patient denies any shortness of breath. PMD: none provided Past Medical History Reviewed: Historical Data, Nursing Documentation, Vital Signs Vital Signs: Last Vital Signs Temp 98.0 F 10/27/18 22:48 Pulse 88 10/27/18 22:48 Resp 16 10/27/18 22:48 BP 138/84 10/27/18 22:48 Pulse Ox 98 10/27/18 22:48 - Family History Family History: States: Unknown Family Hx - Immunization History Hx Tetanus Toxoid Vaccination: No Hx Influenza Vaccination: No Hx Pneumococcal Vaccination: No - Home Medications Home Medications: Ambulatory Orders Medication Instructions Recorded No Known Home Med 01/31/17 - Allergies Allergies/Adverse Reactions: Allergies Allergy/AdvReac Type Severity Reaction Status Date / Time No Known Allergies Allergy Verified 10/27/18 22:48 Review of Systems ROS Statement: Except As Marked, All Systems Reviewed And Found Negative Review Of Systems: ROS cannot be obtained secondary to pt's inabilty to answer questions. (Intoxication) Cardiovascular: Positive for: Chest Pain Respiratory: Negative for: Shortness of Breath Physical Exam - Reviewed Nursing Documentation Reviewed: Yes Vital Signs Reviewed: Yes - Physical Exam Appears: Negative for: Non-toxic (alcohol intoxication, slurred speech.) Head Exam: Positive for: ATRAUMATIC, NORMAL INSPECTION, NORMOCEPHALIC Skin: Positive for: Normal Color, Warm, Dry Eye Exam: Positive for: EOMI, Normal appearance, PERRL ENT: Positive for: Normal ENT Inspection Neck: Positive for: Normal, Painless ROM, Supple Cardiovascular/Chest: Positive for: Regular Rate, Rhythm Respiratory: Positive for: CNT, Normal Breath Sounds Gastrointestinal/Abdominal: Positive for: Normal Exam, Soft Back: Positive for: Normal Inspection. Negative for: L CVA Tenderness, R CVA Tenderness Extremity: Positive for: Normal ROM Neurological/Psych: Positive for: Awake, Alert, Normal Tone. Negative for: Motor/Sensory Deficits - Laboratory Results Result Diagrams: 10/27/18 23:30 10/27/18 23:30 Lab Results: Troponin I < 0.0120 ng/mL (0.00-0.120) 10/27/18 23:30 - ECG O2 Sat by Pulse Oximetry: 98 Medical Decision Making Medical Decision Making: Time: 2310 A/P: Likely alcohol intoxication. No sign on external trauma, patient's vitals are intact. Will get EKG and Troponin for chest pain to rule out cardiac etiolgoy. -EKG -BMP -Troponin -Alcohol serum -Drug screen -CBC -Chest x-ray -Sodium chloride -Toradol 15mg -[employer] -Urinalysis 200 --Patient is resting, no acute changes 0400 --Second troponin drawn, patient resting 0600 --Second troponin negative 0700 --Will endorse to Dr. Parkinson pending sobriety Scribe Attestation: Documented by Lacy Crowley, acting as a scribe for Nathanael Wilkinson. Provider Scribe Attestation: All medical record entries made by the Scribe were at my direction and personally dictated by me. I have reviewed the chart and agree that the record accurately reflects my personal performance of the history, physical exam, medical decision making, and the department course for this patient. I have also personally directed, reviewed, and agree with the discharge instructions and disposition. Disposition - Clinical Impression Clinical Impression: Alcohol abuse with intoxication - Patient ED Disposition Is Patient to be Admitted: Transfer of Care - Disposition Disposition: Transfer of Care Disposition Time: 07:00 Condition: STABLE Forms: [employer] (Nauruan) Patient Signed Over To: Niki Parkinson Handoff Comments: pending sobriety
[2018-10-28 01:05] LABS: OPIATES, UR NEGATIVE (NEGATIVE)
[2018-10-28 01:19] LABS: BARBITURATES, UR NEGATIVE (NEGATIVE); BENZODIAZEPINES, UR NEGATIVE (NEGATIVE); PHENCYCLIDINE, UR NEGATIVE (NEGATIVE)
--- NOTE | 2018-10-28 07:06 | ED PDOC ---
- Laboratory Results Result Diagrams: 10/28/18 13:15 10/28/18 13:15 Lab Results: Troponin I < 0.0120 ng/mL (0.00-0.120) 10/28/18 04:20 - ECG O2 Sat by Pulse Oximetry: 98 (RA) Pulse Ox Interpretation: Normal - Progress Re-evaluation Time: 14:26 Condition: Re-examined, Improved (after ativan) Medical Decision Making Medical Decision Making: Time: 7:00 Patient was signed out to me by Dr. Wilkinson pending sobriety and final dispositio n. Scribe Attestation: Documented by Clair Doshi, acting as a scribe for Niki Parkinson MD. Provider Scribe Attestation: All medical record entries made by the Scribe were at my direction and person ally dictated by me. I have reviewed the chart and agree that the record accurately reflects my personal performance of the history, physical exam, medical decision making, and the department course for this patient. I have also personally directed, reviewed, and agree with the discharge instructions and disposition. 1.00p - patient complaining of not feeling well. Appears tremulous. Will repeat labs. Also ordered EKG and chest x-ray. Will give ATivan 2mg IM. Disposition Doctor Will See Patient In The: Office Counseled Patient/Family Regarding: Diagnosis - Clinical Impression Clinical Impression: Alcohol abuse with intoxication, Alcohol dependence - POA Present On Arrival: None - Disposition Referrals: [facility] [Outside] [facility] [Outside] Disposition: Routine/Home Disposition Time: 14:26 Condition: STABLE Prescriptions: chlordiazePOXIDE [Chlordiazepoxide HCl] 25 mg PO Q6H #20 cap Instructions: Alcohol Use - When Is Drinking a Problem? Forms: [employer] (Amharic), [facility] School/Work Excuse
--- NOTE | 2018-10-28 08:54 | CARD ---
APPROVED REPORT Date of service: 10/27/2018 EKG Measurement Heart [id number] <Conclusion> Sinus bradycardia Otherwise normal ECG
--- NOTE | 2018-10-28 09:41 | RAD ---
Date of service: 10/27/2018 PROCEDURE: CHEST RADIOGRAPH, 1 VIEW HISTORY: cp COMPARISON: 03/07/2017 FINDINGS: LUNGS: Clear PLEURA: No pneumothorax or pleural fluid seen. CARDIOVASCULAR: No aortic atherosclerotic calcification present. Normal. OSSEOUS STRUCTURES: Slight leftward convexity of the thoraco lumbar spine. Lumbar spondylosis VISUALIZED UPPER ABDOMEN: There is probable on right colonic bowel gas accentuating the right hepatic margin. No subdiaphragmatic free air on this upright portable study is noted. OTHER FINDINGS: None. IMPRESSION: No acute cardiopulmonary pathology appreciated.
[2018-10-28 13:26] LABS: BASO % 0.4 % (0.0-2.0); EOS # 0.1 K/uL (0.0-0.7); EOS % 1.5 % (0.0-4.0); HEMOGLOBIN 12.4 g/dL (12.0-18.0); LYMPH # 0.9 K/uL (1.0-4.3); LYMPH % 19.5 % (20.0-40.0); MEAN CELL VOLUME 93.9 fl (80.0-94.0); MEAN CORPUSCULAR HEMOGLOBIN 31.5 pg (27.0-31.0); MEAN CORPUSCULAR HGB CONC 33.6 g/dL (33.0-37.0); MEAN PLATELET VOLUME 8.3 fl (7.2-11.7); MONO # 0.4 K/uL (0.0-0.8); MONO % 8.4 % (0.0-10.0); NEUT # 3.1 K/uL (1.8-7.0); NEUT % 70.2 % (50.0-75.0); NRBC % 0.1 % (0.0-0.0); RBC 3.94 Mil/uL (4.40-5.90); RED CELL DISTRIBUTION WIDTH 14.6 % (11.5-14.5); WHITE BLOOD COUNT 4.4 K/uL (4.8-10.8)
[2018-10-28 13:40] LABS: ALB/GLOB RATIO 1.3 (1.0-2.1); ALBUMIN 3.8 g/dL (3.5-5.0); ALT/SGPT 79 U/L (21-72); AST/SGOT 118 U/L (17-59); BLOOD UREA NITROGEN 8 mg/dl (9-20); CALCIUM 8.3 mg/dL (8.4-10.2); GFR NON-AFRICAN AMERICAN > 60; LIPASE 148 U/L (23-300)
[2018-10-28 13:49] LABS: ABG ALLEN TEST YES; ARTERIAL BLOOD GAS HCO3 26.5 mmol/L (21-28); ARTERIAL BLOOD GAS O2 SAT 96.2 % (95-98); ARTERIAL BLOOD GAS PCO2 39 mm/Hg (35-45); ARTERIAL BLOOD GAS PH 7.44 (7.35-7.45); ARTERIAL BLOOD GAS PO2 64 mm/Hg (80-100); ARTERIAL BLOOD GAS TCO2 27.7 mmol/L (22-28)
--- NOTE | 2018-10-28 14:13 | RAD ---
HISTORY: chest discomfort. not feeling well COMPARISON: Chest x-ray performed 10/27/18 and 03/07/17 TECHNIQUE: Chest, one view. FINDINGS: Examination limited by habitus and hypoinflation. LUNGS: No focal consolidation. Please note that chest x-ray has limited sensitivity for the detection of pulmonary masses. PLEURA: No significant pleural effusion identified. No definite pneumothorax . CARDIOVASCULAR: Heart size appears within normal limits. Persistent mediastinal prominence possibly related to vascular ectasia. Faint atherosclerotic calcification present. OSSEOUS STRUCTURES: No acute osseous abnormality identified. VISUALIZED UPPER ABDOMEN: Unremarkable. OTHER FINDINGS: None. IMPRESSION: No focal consolidation identified. Re-identified mediastinal prominence, possibly related to vascular ectasia.
[2018-10-28 14:57] VITALS: BP 146/77; PULSE 106; RESP 12; TEMP 99.3; O2SAT 96
--- NOTE | 2018-10-28 19:44 | CARD ---
APPROVED REPORT Date of service: 10/28/2018 EKG Measurement Heart [id number] <Conclusion> Normal sinus rhythm Normal ECG
== END 2018-10-28 14:29 | disposition home or self-care (01) ==
LOC: H.ER 22:47
DX: F10.129 Alcohol abuse with intoxication, unspecified (principal); F10.20 Alcohol dependence, uncomplicated; Y90.6 Blood alcohol level of 120-199 mg/100 ml; R07.89 Other chest pain
CPT/HCPCS: 71045; 80048; 80053; 80320; 80324; 80345; 80346; 80349; 80353; 80358; 80361; 82803; 83690; 83992; 84484; 85025; 93005; 96360; 96372; 96374; 99285; J1885; J2060; J7030